=== PATIENT | female | born 1965 | race African-American/Black ===

== ENCOUNTER 2016-10-14 15:53 | Emergency (ER) | payer MEDICAID ==
[~2016-10-14] VITALS: Ht 167.6 cm; Wt 65.8 kg
[2016-10-14] MEDS ORDERED: NKM (16:07)
[2016-10-14] MEDS ORDERED: KENALOG 0.025%15 GM APPLIC (16:22)
[2016-10-14 16:33] VITALS: BP 136/87
[2016-10-14 16:38] VITALS: BP 136/87
--- NOTE | 2016-10-14 16:41 | Emergency Room Report ---
History of Present Illness General Chief Complaint: Skin Rash/Abscess Source: Patient Present Illness HPI [id number] with 2 weeks of "rash" to radial aspect/dorsal of right hand after cleaning out garage happens each year after cleaning out garage doesnt remember open wound or insect bite Initially had itch then resolved Denies redness, warmth to area Denies history of psoriasis, eczema, rash in other placed Denies fever/chills, vesicles Allergies: Coded Allergies: No Known Allergies (Unverified , 10/14/16) Patient History Past Medical History: none Past Surgical History: none Pertinent Family History: none Social History: Denies: smoking, alcohol use, drug use Now: No Immunizations: UTD Reviewed Nursing Documentation: PMH: Agreed, PSxH: Agreed Nursing Documentation-PMH Past Medical History: No Stated History Review of Systems All Other Systems: negative except mentioned in HPI Physical Exam Vital Signs Date Time Temp Pulse Resp B/P (MAP) Pulse Ox O2 Delivery O2 Flow Rate FiO2 10/14/16 16:03 98.4 75 16 136/87 100 Sp02 EP Interpretation: reviewed, normal General Appearance: normal inspection, well appearing, no apparent distress, alert, GCS 15, non-toxic Head: normocephalic, atraumatic Eyes: bilateral eye PERRL, bilateral eye EOMI ENT: normal ENT inspection, hearing grossly normal, normal voice Neck: normal inspection, full range of motion, supple, no bony tend Respiratory: normal inspection, lungs clear, normal breath sounds, no respiratory distress, no retraction, no wheezing Gastrointestinal: normal inspection, normal bowel sounds, non tender, soft, no guarding, no hernia Genitourinary: no CVA tenderness Musculoskeletal: normal inspection, back normal, normal range of motion, Minerva' s Sign negative Neurologic: normal inspection, alert, oriented x3, responsive, handbell choir director III-XII nml as tested, motor strength/tone normal, speech normal Psychiatric: normal inspection, judgement/insight normal, mood/affect normal Skin: normal inspection, normal color, other - Raised area of 4cm circular. No ertyhma, induration, vesicles, palpable warmth. ?hives Medical Decision Making Diagnostic Impression: Primary Impression: Rash ER Course More likely allergic skin reaction vs cellulitis less likely given no warmth, no induration/erythema, afebrile Topical steroid given DC home with PMD referral for Derm if no improvement Last Vital Signs Date Time Temp Pulse Resp B/P (MAP) Pulse Ox O2 Delivery O2 Flow Rate FiO2 10/14/16 16:03 98.4 75 16 136/87 100 Status: improved Disposition: HOME, SELF-CARE Condition: Improved Scripts Triamcinolone Acet (Triamcinolone Acetonide) 15 Gm Cream..g. 15 GM APPLIC BID for 7 Days, #1 UNIT Prov: HARSHIL BOJORQUEZ M.D. 10/14/16 Referrals: NOT CHOSEN IPA/,REFERRING (PCP) Patient Instructions: Rash Additional Instructions: - apply cream to rash twice daily for 1 week - if no improvement followup with primary care doctor for Dermatology referral HARSHIL BOJORQUEZ M.D. Oct 14, 2016 16:41
== END 2016-10-14 16:39 | disposition home or self-care (01) ==
LOC: EMR 16:27
DX: R21 Rash and other nonspecific skin eruption (principal)
CPT/HCPCS: 99283

== ENCOUNTER 2018-04-03 18:28 | Emergency (ER) | payer MEDICAID ==
[~2018-04-03] VITALS: Ht 167.6 cm; Wt 74.8 kg
[~2018-04-03 18:28] MED LIST: KENALOG 0.025%15 GM APPLIC; NKM
[2018-04-03] MEDS ORDERED: NKM (18:40)
--- NOTE | 2018-04-03 18:45 | NUR ---
ED Nurse Note: PT WALKED IN TO ER TODAY FROM HOME. AOX4. PT C/O RIGHT EYE IRRITATION, REDNESS, TEARING, AND DISCHARGE X 1 HOUR AGO. PT DENIES ANY CHANGES IN VISION, TRAUMA, OR INJURY. VA OD: 20/20 VA OS: 20/40
[2018-04-03 18:59] VITALS: BP 128/84
--- NOTE | 2018-04-03 19:00 | Emergency Room Report ---
History of Present Illness General Chief Complaint: Eye Problems Source: Patient Present Illness HPI 52-year-old female patient presents the ER complaining of "I think I have pinkeye". Reports right eye itching and pain and yellow discharge times 2 hours. Denies wearing contact lenses, states she wears glasses. Denies fever, chest pain, shortness of breath. Reports foreign body sensation.. Denies loss of vision. Denies other aggravating or relieving factors. Denies joint pain. Denies pain with urination. Denies abdominal pain. States is not up-to-date on tetanus vaccination. Allergies: Coded Allergies: No Known Allergies (Unverified , 10/14/16) Patient History Past Medical History: see triage record Last Menstrual Period: menopause Reviewed Nursing Documentation: PMH: Agreed; PSxH: Agreed Nursing Documentation-PMH Past Medical History: No Stated History Review of Systems All Other Systems: negative except mentioned in HPI Physical Exam Vital Signs Date Time Temp Pulse Resp B/P (MAP) Pulse Ox O2 Delivery O2 Flow Rate FiO2 04/03/18 18:36 98.4 81 16 132/86 97 Room Air Sp02 EP Interpretation: reviewed, normal General Appearance: well appearing, no apparent distress, alert, GCS 15, non- toxic Head: normocephalic, atraumatic Eyes: right eye Scleral Injection, right eye other - Yellow discharge noted at medial canthus; bilateral eye normal inspection, bilateral eye PERRL, bilateral eye EOMI ENT: hearing grossly normal, normal pharynx, no angioedema, normal voice, uvula midline, moist mucus membranes Neck: full range of motion Respiratory: lungs clear, normal breath sounds, no rhonchi, no respiratory distress, no accessory muscle use, no wheezing, speaking full sentences Cardiovascular #1: regular rate, rhythm, no edema Musculoskeletal: back normal, digits/nails normal, gait/station normal, normal range of motion, non-tender Neurologic: alert, oriented x3, responsive, motor strength/tone normal, sensory intact Psychiatric: mood/affect normal Skin: no rash Medical Decision Making PA Attestation Dr. Duong is my supervising Physician whom patient management has been discussed with. Diagnostic Impression: Primary Impression: Conjunctivitis ER Course Pt. presents to the ED c/o conjunctival injection and eye drainage. Ddx considered but are not limited to allergic conjunctivitis, viral conjunctivitis, bacterial conjunctivitis, periorbital cellulitis, URI, sinusitis , keratitis, glaucoma. No reduction in VA, no cilliary flush, no photophobia, no FB sensation, no corneal opacity, low suspicion for keratitis, iritis. No EVANS, no vomiting, no fixed pupil, no reduction of VA, no ciliary flush, low suspicion for angle closure glaucoma. See nurses note for visual acuity. Vital signs: are WNL, pt. is afebrile Patient has no signs of surrounding cellulitis, no pain with eye movement, does not require imaging at this time. ER COURSE: Signs and symptoms consistent with conjunctivitis. Eye drainage noted likely causing foreign body sensation. Eye irrigated with copious saline. Fluorescein uptake negative, no corneal abrasion, negative Gus sign, no rust ring. F/u with ophthalmology. F/u with environmental technical officer. May return to school after 24 hours of treatment completed. ER precautions given. DISCHARGE: Rx provided for Erythromycin ointment. Informed patient to apply to both eyes. At this time pt. is stable for d/c to home. Patient is resting comfortably, in no acute distress, nontoxic appearing, talking and smilng without difficulty. Will provide printed patient care instructions, and any necessary prescriptions. Patient instructed to follow up with technical testing engineer and discuss further follow up with ophthamology and environmental technical officer. Care plan and follow up instructions have been discussed with the patient prior to discharge. Patient questions asked and answered. Patient reports undestanding and agreement to treatment plan. ER precautions given. Patient instructed to return to ER immediately for any new or worsening of symptoms including but not limited to vision loss, fever, changes in vision. - Please note that this Emergency Department Report was dictated using [employer] leader technology software, occasionally this can lead to erroneous entry secondary to interpretation by the dictation equipment. Last Vital Signs Date Time Temp Pulse Resp B/P (MAP) Pulse Ox O2 Delivery O2 Flow Rate FiO2 04/03/18 18:36 98.4 81 16 132/86 97 Room Air Status: improved Disposition: HOME, SELF-CARE Condition: Stable Scripts Erythromycin Base (ERYTHROMYCIN*) 3.5 Gm Oint...g. 1 APPLIC RIGHT EYE TID for 7 Days, #3.5 GM 0 Refills Prov: Himanshu Calles 04/03/18 Patient Instructions: Bacterial Conjunctivitis, [id number] Additional Instructions: Followup with primary care provider in 3 -5 days. Follow-up with hoop bending machine operator and environmental technical officer. Take medications as directed. Patient questions asked and answered. ER precautions given, patient instructed to return to ER immediately for any new or worsening of symptoms. Himanshu Calles Apr 03, 2018 19:00
--- NOTE | 2018-04-03 19:13 | NUR ---
ED Nurse Note: REPORT GIVEN TO LIBERTY ESQUIVEL.
[2018-04-03] MEDS ORDERED: Tetracaine 0.5% Opth 4ml Soln RIGHT EYE ONE (19:15)
[2018-04-03] MEDS ORDERED: Tetanus/Diptheria/Pertussis Vaccine 0.5ml Syr IM ONE (19:15)
[2018-04-03] MEDS ORDERED: Fluorescein Strips RIGHT EYE ONE (19:15)
[2018-04-03] MEDS ORDERED: ERYTHROMYCIN3.5 GM RIGHT EYE (19:38)
[2018-04-03 20:03] VITALS: BP 128/81
--- NOTE | 2018-04-03 20:03 | NUR ---
ED Nurse Note: PT is cleared to be d/c per ER provider, pt discharge/aftercare instruction with prescription provided, pt education done via discussion and hand out, pt advised to follow up with pcp or return to ED if s/s worsen or new sx develop, pt wrist band removed, pt verbalized understanding and agrees with plan, all belongings left with pt, pt ambulatory w/ steady gait, vss, resp even and unlabored RA.
== END 2018-04-03 20:03 | disposition home or self-care (01) ==
LOC: EMR 19:37
DX: H10.9 Unspecified conjunctivitis (principal); Z23 Encounter for immunization
CPT/HCPCS: 90471; 90715; 99282

== ENCOUNTER 2018-04-07 10:32 | Emergency (ER) | payer MEDICAID ==
[~2018-04-07] VITALS: Ht 167.6 cm; Wt 73.9 kg
[~2018-04-07 10:32] MED LIST changes: +ERYTHROMYCIN3.5 GM RIGHT EYE
[2018-04-07 10:42] VITALS: BP 130/75
--- NOTE | 2018-04-07 10:42 | NUR ---
ED Nurse Note: Pt walked in to ED for work note. pt was here for pink eye on Sat. Pt denies pain.
--- NOTE | 2018-04-07 10:48 | Emergency Room Report ---
History of Present Illness General Chief Complaint: General Complaint Source: Patient Present Illness HPI Patient was recently evaluated here for pinkeye. She has been using eyedrops with improvement. She states there is minimal crusting this morning. She is here to receive a release for work. She denies fevers, chills, sore throat, runny nose, cough, neck pain, rashes, nausea, vomiting, diarrhea, dysuria. She denies any headache. 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 Period: menopause Reviewed Nursing Documentation: PMH: Agreed; PSxH: Agreed Nursing Documentation-PMH Past Medical History: No Stated History Review of Systems All Other Systems: negative except mentioned in HPI Physical Exam Vital Signs Date Time Temp Pulse Resp B/P (MAP) Pulse Ox O2 Delivery O2 Flow Rate FiO2 04/07/18 10:36 98.2 71 18 139/74 98 Room Air 04/07/18 10:42 95 General Appearance: well appearing, no apparent distress Head: normocephalic, atraumatic Eyes: bilateral eye normal inspection, bilateral eye PERRL, bilateral eye EOMI ENT: hearing grossly normal, normal pharynx, normal voice, moist mucus membranes Neck: full range of motion, supple Respiratory: no respiratory distress, speaking full sentences Musculoskeletal: gait/station normal Neurologic: alert, normal gait, grossly normal Psychiatric: mood/affect normal Skin: no rash Medical Decision Making Diagnostic Impression: Primary Impression: History of pink eye ER Course Patient presents for evaluation of pinkeye. There is minimal discharge this morning. Her eyes appear normal at this time. Due to the fact that there is still discharge this morning the patient will be released for work tomorrow. Patient stable for outpatient observation and treatment. Last Vital Signs Date Time Temp Pulse Resp B/P (MAP) Pulse Ox O2 Delivery O2 Flow Rate FiO2 04/07/18 11:04 98.1 77 22 120/85 98 Room Air 04/07/18 10:42 95 Status: unchanged Disposition: HOME, SELF-CARE Condition: Stable Sanjiv Duong MD Apr 07, 2018 10:48
[2018-04-07 11:04] VITALS: BP 120/85
--- NOTE | 2018-04-07 11:04 | NUR ---
ER DISCHARGE NOTE: Patient is cleared to be discharged per ERMD, pt is aox4, on room air, with stable vital signs. pt was given dc and prescription instructions, pt was able to verbalize understanding, pt id band removed without complications. pt is able to ambulate with steady gait. pt took all belongings.
== END 2018-04-07 11:05 | disposition home or self-care (01) ==
LOC: EMR 11:00
DX: H10.029 Other mucopurulent conjunctivitis, unspecified eye (principal)
CPT/HCPCS: 99282